=== PATIENT | female | born 1980 | race Caucasian/White ===

== ENCOUNTER 2017-04-21 13:46 | Emergency (ER) | payer MEDICAID ==
[~2017-04-21] VITALS: Ht 160 cm; Wt 74.8 kg
[2017-04-21 14:00] VITALS: BP 122/83
[2017-04-21 15:00] VITALS: BP 122/83
[2017-04-21] MEDS ORDERED: Excedrin Migraine tab ORAL ONE (15:00)
[2017-04-21] MEDS ORDERED: LORazepam 1mg tab ORAL ONE (15:00)
--- NOTE | 2017-04-21 15:00 | Emergency Room Report ---
History of Present Illness General Chief Complaint: Behavioral Complaint Source: Patient, EMS Present Illness HPI 37-year-old female presents to the emergency department complaining of increased anxiety with recent anxiety attack. Patient states she has not been prescribed her medication for over one month. Patient states that she typically takes various types of benzodiazepines. Patient denies cardiac history, recent changes in weight, night sweats, chest pain. Patient reports feeling overwhelming sense of fever and worrying with rapid breathing. pt reports feeling "shaky" pt reports that she originally was going to an urgent care to be seen when she called 911. Denies CP, Palpitations, LOC, AMS, dizziness, Changes in Vision, Sensation, paresthesias, or a sudden severe headache. Denies recreational drug use, hallucinations, delusions, SI or HI. Pt denies hx of TBI, flashbacks or abuse. Denies . Allergies: Coded Allergies: No Known Allergies (Unverified , 04/21/17) Patient History Past Medical History: see triage record Past Surgical History: none Pertinent Family History: none Last Menstrual Period: 3 weeks Now: No Reviewed Nursing Documentation: PMH: Agreed, PSxH: Agreed Nursing Documentation-PMH Past Medical History: No History, Except For History Of Psychiatric Problem: Yes - anxiety Review of Systems All Other Systems: negative except mentioned in HPI Physical Exam Vital Signs Date Time Temp Pulse Resp B/P (MAP) Pulse Ox O2 Delivery O2 Flow Rate FiO2 04/21/17 13:43 98.1 75 20 147/99 100 Room Air Sp02 EP Interpretation: reviewed, normal General Appearance: no apparent distress, alert, GCS 15, non-toxic Head: normocephalic, atraumatic Eyes: bilateral eye normal inspection, bilateral eye PERRL ENT: hearing grossly normal, normal voice Neck: full range of motion, supple/symm/no masses Respiratory: lungs clear, normal breath sounds, speaking full sentences Cardiovascular #1: regular rate, rhythm Gastrointestinal: non tender, soft Rectal: deferred Musculoskeletal: back normal, gait/station normal, normal range of motion, non- tender Neurologic: alert, oriented x3, responsive, motor strength/tone normal, sensory intact, speech normal Psychiatric: judgement/insight normal, memory normal, anxious Skin: normal color, no rash, warm/dry, well hydrated Medical Decision Making PA Attestation Dr. Pang is my supervising Physician whom patient management has been discussed with. Diagnostic Impression: Primary Impression: Anxiety reaction ER Course 37-year-old female presents to the emergency department complaining of increased anxiety with recent anxiety attack. Patient states she has not been prescribed her medication for over one month. Patient states that she typically takes various types of benzodiazepines. Patient denies cardiac history, recent changes in weight, night sweats, chest pain. Patient reports feeling overwhelming sense of fever and worrying with rapid breathing. pt reports feeling "shaky" pt reports that she originally was going to an urgent care to be seen when she called 911. Denies CP, Palpitations, LOC, AMS, dizziness, Changes in Vision, Sensation, paresthesias, or a sudden severe headache. Denies recreational drug use, hallucinations, delusions, SI or HI. Pt denies hx of TBI, flashbacks or abuse. Denies . Ddx considered but are not limited to anxiety, MT, PE, asthma, thyroid storm, hyperthyroid, EPS Vital signs: are WNL, pt. is afebrile H&PE are most consistent with possible generalized anxiety, PE is benign and I do not suspect an acute emergent condition at this time. VS WNL and Stable. Pt. no SI/HI --Review of [employer]S web-site :No evidence that this patient was prescribed any controlled substance within the last 6 months. Discussed these results with the patient and she was adamant that she is prescribed benzos by a previous doctor in [facility] and that because it was a different [facility] may not be showing up on her system. Discussed with patient that this is a federal website operated by the [facility] and includes all [facility] in [place]. ORDERS: none required at this time, the diagnosis is clinical ED INTERVENTIONS: - Ativan PO --Patient was given [facility] urgent care resource information and instructed to followup with currency exchange specialist to be evaluated for generalized anxiety and medication management. Discussed with patient that she will be given small quantity of nonaddictive antianxiety medication. DISCHARGE: At this time pt. is stable for d/c to home. Will provide printed patient care instructions, and any necessary prescriptions. Care plan and follow up instructions have been discussed with the patient prior to discharge. Last Vital Signs Date Time Temp Pulse Resp B/P (MAP) Pulse Ox O2 Delivery O2 Flow Rate FiO2 04/21/17 13:43 98.1 75 20 147/99 100 Room Air Disposition: HOME, SELF-CARE Condition: Stable Scripts Acetaminophen* (TYLENOL EXTRA STRENGTH*) 500 Mg Tablet 500 MG ORAL Q6H, #10 TAB 0 Refills Prov: Genoveva Galarza 04/21/17 Buspirone Hcl* (BUSPAR*) 10 Mg Tablet 10 MG ORAL THREE TIMES A DAY for 5 Days, #15 TAB 0 Refills Prov: Genoveva Galarza 04/21/17 Patient Instructions: Generalized Anxiety Disorder Additional Instructions: Take medications as directed. Follow up with a Mental Health Specialist/ Psychiatrist in 3 days, even if your symptoms have resolved. --Please review [facility] resource information provided Return sooner to ED if new symptoms occur, or current symptoms become worse. - Please note that this Emergency Department Report was dictated using [employer]biostatistics teacher technology software, occasionally this can lead to erroneous entry secondary to interpretation by the dictation equipment. Genoveva Galarza Apr 21, 2017 15:00
[2017-04-21] MEDS ORDERED: TYLENOL EXTRA500 MG ORAL (15:03)
[2017-04-21] MEDS ORDERED: BUSPAR10 MG ORAL (15:03)
== END 2017-04-21 15:38 | disposition home or self-care (01) ==
LOC: EDBD 13:46 → EMR 15:12
DX: F41.1 Generalized anxiety disorder (principal)
CPT/HCPCS: 99284